=== PATIENT | male | born 1980 | race Caucasian/White ===

== ENCOUNTER 2017-01-20 10:26 | Emergency (ER) | payer OTHER ==
[~2017-01-20 10:26] MED LIST: ACETAMINOPHEN PO; ANTIBIOTIC; CIPRO PO; DIAZEPAM PO; FLOMAX0.4 M1 PO; MULTI VITAMIN1 EACH PO; PRILOSEC; PROTONIX20 MG PO; STEROIDS; VICODIN PO; VOLTAREN75 MG PO; [UNRECOGNIZED DRUG - REMARK]; [UNRECOGNIZED DRUG - REMARK]
== END 2017-01-20 10:28 | disposition home or self-care (01) ==
LOC: CFTX 10:26
DX: J02.9 Acute pharyngitis, unspecified (principal); R03.0 Elevated blood-pressure reading, without diagnosis of hypertension
CPT/HCPCS: 96372; 99283; J0561

== ENCOUNTER 2017-06-25 16:38 | Emergency (ER) | payer OTHER ==
[~2017-06-25] VITALS: Ht 175.3 cm; Wt 95.2 kg
== END 2017-06-25 18:16 | disposition home or self-care (01) ==
LOC: CED 16:38 → CFTX 16:38
DX: M54.2 Cervicalgia (principal); K21.9 Gastro-esophageal reflux disease without esophagitis; Z90.49 Acquired absence of other specified parts of digestive tract
CPT/HCPCS: 96372; 99283; J1885